=== PATIENT | female | born 1950 | race Caucasian/White ===

== ENCOUNTER 2016-10-02 12:13 | Emergency (ER) | payer MEDICARE ==
[2016-10-02 12:35] VITALS: BMI 22.8
[2016-10-02 12:38] VITALS: TEMP 98.1
--- NOTE | 2016-10-02 12:50 | ED PDOC ---
Arrival/HPI - General Chief Complaint: Lower Extremity Problem/Injury Time Seen by Provider: 10/02/16 12:42 Historian: Patient - History of Present Illness Narrative History of Present Illness (Text): 10/02/16 12:47 66 y/o female, pmh including htn and hypothyroidism, nkda, c/o rt. anterior vásquez swelling x 1 week. Pt. sent in by DR. Bledsoe for evaluation of the rt. lower lower vásquez swelling x 1 week. Pt. accidentally sustained abrasion about 1 week ago, last tetanus under 7 years ago, been having swelling on the rt. lower extremity, no fever or chills, no headache or night sweat, no other medical or psychological complaints. Past Medical History - Provider Review Nursing Documentation Reviewed: Yes - Infectious Disease Hx of Infectious Diseases: None - Tetanus Immunization Tetanus Immunization: Unknown - Cardiac Hx Cardiac Disorders: Yes Hx Hypertension: Yes - Pulmonary Hx Respiratory Disorders: No - Neurological Hx Neurological Disorder: No - HEENT Hx HEENT Disorder: No - Renal Hx Renal Disorder: No - Endocrine/Metabolic Hx Endocrine Disorders: Yes Hx Hypothyroidism: Yes - Hematological/Oncological Hx Blood Disorders: No - Integumentary Hx Dermatological Disorder: No - Musculoskeletal/Rheumatological Hx Musculoskeletal Disorders: No - Gastrointestinal Hx Gastrointestinal Disorders: No - Genitourinary/Gynecological Hx Genitourinary Disorders: No - Psychiatric Hx Psychophysiologic Disorder: No Hx Depression: No Hx Emotional Abuse: No Hx Physical Abuse: No Hx Substance Use: No - Past Surgical History Past Surgical History: Non-Contributing - Suicidal Assessment Feels Threatened In Home Enviroment: No Family/Social History - Physician Review Nursing Documentation Reviewed: Yes Family/Social History: Unknown Family HX Smoking Status: Never Smoked Hx Alcohol Use: No Hx Substance Use: No Hx Substance Use Treatment: No Allergies/Home Meds Allergies/Adverse Reactions: Allergies No Known Allergies Allergy (Verified 10/02/16 12:35) Home Medications: Home Meds Medication Instructions Recorded Confirmed Levothyroxine [Synthroid] 50 mcg PO DAILY 10/02/16 10/02/16 Losartan [Cozaar] 25 mg PO DAILY 10/02/16 10/02/16 Review of Systems - Review of Systems Constitutional: absent: Fatigue, Fevers Eyes: absent: Vision Changes ENT: absent: Hearing Changes Respiratory: absent: SOB, Cough Cardiovascular: absent: Chest Pain Gastrointestinal: absent: Abdominal Pain, Nausea, Vomiting Musculoskeletal: Myalgias. absent: Arthralgias, Back Pain, Joint Swelling Neurological: absent: Headache, Dizziness, Focal Weakness, Gait Changes Physical Exam Vital Signs Reviewed: Yes Vital Signs Temp Pulse Resp BP Pulse Ox 10/02/16 14:28 69 18 145/68 99 10/02/16 13:25 75 18 148/71 99 10/02/16 12:35 98.1 F 79 16 155/79 H 99 Temperature: Afebrile Blood Pressure: Hypertensive Pulse: Regular Respiratory Rate: Normal Appearance: Positive for: Well-Appearing, Non-Toxic, Comfortable Pain Distress: Mild Mental Status: Positive for: Alert and Oriented X 3 - Systems Exam Head: Present: Atraumatic, Normocephalic Pupils: Present: PERRL Extroacular Muscles: Present: EOMI Conjunctiva: Present: Normal Mouth: Present: Moist Mucous Membranes Neck: Present: Normal Range of Motion Respiratory/Chest: Present: Clear to Auscultation, Good Air Exchange. No: Respiratory Distress, Accessory Muscle Use Cardiovascular: Present: Regular Rate and Rhythm, Normal S1, S2. No: Murmurs Abdomen: Present: Normal Bowel Sounds. No: Tenderness, Distention, Peritoneal Signs Back: Present: Normal Inspection Upper Extremity: Present: Normal Inspection. No: Cyanosis, Edema Lower Extremity: Present: Normal Inspection, Other (Rt. tibia/fibula region: visible approx. 14cm superficial abrasion with approx. [id number] flutuant noted with no erythematous, no cellulitis or streaking,no ulcers, no pain on the skin , FROM without limitation, sensation intact, motor 5/5, +DPPT pulses, capillary refill< 2 seconds, neurovascular intact. ). No: Edema Neurological: Present: GCS=15, CN II-XII Intact, Speech Normal Skin: Present: Warm, Dry, Normal Color. No: Rashes Psychiatric: Present: Alert, Oriented x 3, Normal Insight, Normal Concentration Medical Decision Making ED Course and Treatment: 10/02/16 12:50 -labs -CT rt. lower extremity -RLE venuous doppler -observe and reassess 10/02/16 14:57 -CT performed without contrast due to the tech performed the CT without IV contrast -RLE: as per preliminary report, no acute DVT -Rt. LE CT show: cellulitis with drainable collection -I physically examined the patient with no abscess but hematoma and no cellulitis but ecchymosis. -I reviewed the case/result with DR. Christensen which he agreed on the treatment and discharge plan. -Sensation intact, motor 5/5, wound irrigate with 1000cc of normal saline, clean with betadine, 1% lidocaine with 1cc for local anesthetic, #11 blade made 1cc of incision, there is no abscess noted with no celluiltis either, flushed and drained about approx. 5cc of clot dark hematoma from the anterior vásquez, swelling spontaneously resolved, 4-0 nylon made 2 stiches, hemostasis obtained, bacitracin applied, gauze dressing, sensation intact, motor 5/5. -CBC show no elevation of wbc. -Afebrile. -Discharge home with keflex, khris wrap, cane, continue bacitracint oinment at home, keep the dressing dry and clean for 24 hours, sutures need to be removed by day 7-9, follow up with Dr. Bledsoe or ER within 2 days for wound check, return to the ER for any new or worsening signs or symptoms. - Lab Interpretations Lab Results: 10/02/16 12:46 Lab Results 10/02/16 12:46: WBC 7.5 D, RBC 3.82, Hgb 11.3 L, Hct 34.7 L, MCV 90.8, MCH 29.6 , MCHC 32.6, RDW 13.2, Plt Count 232, MPV 10.6, Gran % 87.7 H, Lymph % (Auto) 8.6 L, [place] % (Auto) 3.5, Eos % (Auto) 0.1 L, Baso % (Auto) 0.1, Gran # 6.54 H, Lymph # 0.6 L, [place] # 0.3, Eos # 0.0, Baso # 0.01 I have reviewed the lab results: Yes Interpretation: No clinic. lab abnormalty - RAD Interpretation Radiology Orders: 10/02/16 12:46 EXT LOWER WITH CONTRAST RIGHT [CT] Stat 10/02/16 12:48 DUPLEX LOWER EXTRM VEIN RIGHT [US] Stat Rt. Lower Extremity: IMPRESSION: Cellulitis of anterior right lower extremity with associated fluid collection, 1.4 x 3.6 x 7.2 cm. This is most likely a drainable collection. No osseous abnormality. RLE: as per preliminary report, no acute DVT but there is hematoma Shirring Machine Operator Automatic: Radiologist - Medication Orders Current Medication Orders: Discontinued Medications Acetaminophen (Tylenol 325mg Tab) 650 mg PO STAT STA Stop: 10/02/16 14:35 Cephalexin Monohydrate (Keflex) 500 mg PO STAT STA PRN Reason: Protocol Stop: 10/02/16 14:35 - PA / ALIGNING CHECKER / Resident Statement / has reviewed & agrees with the documentation as recorded. Disposition/Present on Arrival - Present on Arrival Any Indicators Present on Arrival: No History of DVT/PE: No History of Uncontrolled Diabetes: No Urinary Catheter: No History of Decub. Ulcer: No History Surgical Site Infection Following: None - Disposition Have Diagnosis and Disposition been Completed?: Yes Diagnosis: Hematoma Disposition: HOME/ ROUTINE Disposition Time: 14:40 Patient Plan: Discharge Patient Problems: Current Active Problems Problem Status Onset Hematoma Acute Condition: GOOD Additional Instructions: Discharge home with keflex, khris wrap, cane, continue bacitracint oinment at home , keep the dressing dry and clean for 24 hours, sutures need to be removed by day 7-9, follow up with Dr. Bledsoe or ER within 2 days for wound check, return to the ER for any new or worsening signs or symptoms. Prescriptions: Acetaminophen [Tylenol 325mg tab] 325 mg PO QID PRN #30 tab PRN Reason: Other Bacitracin Ointment [Bacitracin] 1 appful TOP BID #15 g Cephalexin [Keflex] 500 mg PO QID #28 capsule Referrals: Radha Bledsoe MD [Primary Care Provider] - Follow up with primary Forms: WORK NOTE
--- NOTE | 2016-10-02 13:58 | CT ---
PROCEDURE: CT right lower extremity HISTORY: Rt. anterior vásquez swelling s/p abrasion x 1 week COMPARISON: Not available TECHNIQUE: 2.5 mm contiguous axial sections were acquired through the right lower extremity from the knee to the ankle. The examination was performed without intravenous contrast administration. Sagittal and coronal images were reformatted from the axial images. No prior examination is available for comparison. Total exam DLP: 163.66 mGy-cm FINDINGS: There is no fracture. There is no periosteal reaction. No osseous erosion is appreciated. Anterior to the distal right tibial diaphysis there is a low-density collection measuring 1.4 x 3.6 by 7.2 cm. This most likely represents an abscess. It measures approximately 39 Hounsfield units in attenuation. There is mild cutaneous thickening anterior to this collection suggestive of cellulitis. There is mild infiltration of the subcutaneous fat about this collection. IMPRESSION: Cellulitis of anterior right lower extremity with associated fluid collection, 1.4 x 3.6 x 7.2 cm. This is most likely a drainable collection. No osseous abnormality.
[2016-10-02 14:39] LABS: ADD MANUAL DIFF? NO
[2016-10-02 14:44] LABS: BASO # 0.01 K/mm3 (0.0-2.0); BASO % 0.1 % (0.0-3.0); EOS % 0.1 % (1.5-5.0); GRAN # 6.54 (1.4-6.5); GRAN % 87.7 % (50.0-68.0); HEMATOCRIT 34.7 % (36.0-48.0); LYMPH # 0.6 (1.2-3.4); LYMPH % 8.6 % (22.0-35.0); MEAN CELL VOLUME 90.8 fL (80.0-105.0); MEAN CORPUSCULAR HEMOGLOBIN 29.6 pg (25.0-35.0); MEAN CORPUSCULAR HGB CONC 32.6 g/dl (31.0-37.0); MEAN PLATELET VOLUME 10.6 fl (7.0-11.0); MONO # 0.3 (0.1-0.6); MONO % 3.5 % (1.0-6.0); PLATELET COUNT 232 10^3/uL (120.0-450.0); RED CELL DISTRIBUTION WIDTH 13.2 % (11.5-14.5); WHITE BLOOD COUNT 7.5 10^3/ul (4.5-11.0)
[2016-10-02] MEDS ORDERED: TDAP Vaccine 0.5 mL Syr IM ONE (15:05)
[2016-10-02 15:56] VITALS: BP 143/72; PULSE 68; RESP 16; O2SAT 100
--- NOTE | 2016-10-02 16:07 | US ---
PROCEDURE: Right lower extremity venous US HISTORY: Leg pain and swelling. Evaluate for DVT. PHYSICIAN(S): Sunil Cool M.D. TECHNIQUE: Duplex sonography and color-flow Doppler with graded compression were used to evaluate the deep venous system of the right lower extremity. FINDINGS: The visualized deep venous system of the right lower extremity is sonographically normal and compressible. Normal waveforms and augmentation are seen. There is no sonographic evidence for deep venous thrombosis in the visualized segments of the right lower extremity. There is a 3.1 x 6.4 cm complex fluid collection in the right calf anteriorly. May represent a sequelae of trauma IMPRESSION: 1. No sonographic evidence for deep venous thrombosis in the visualized segments of the right lower extremity.
== END 2016-10-02 15:35 | disposition home or self-care (01) ==
LOC: ED 12:13
DX: S80.11XA Contusion of right lower leg, initial encounter (principal); X58.XXXA Exposure to other specified factors, initial encounter; Z23 Encounter for immunization